=== PATIENT | male | born 1985 | race Caucasian/White ===

== ENCOUNTER 2021-10-21 16:40 | Emergency (ER) | payer MEDICAID, SELFPAY ==
[~2021-10-21] VITALS: Ht 177.8 cm; Wt 100.0 kg
[2021-10-21 16:41] VITALS: BP 120/70
== END 2021-10-21 18:08 | disposition home or self-care (01) ==
LOC: M ED 16:40
DX: S62.655A Nondisplaced fracture of middle phalanx of left ring finger, initial encounter for closed fracture (principal); W22.8XXA Striking against or struck by other objects, initial encounter; Y92.9 Unspecified place or not applicable; Y93.9 Activity, unspecified; Y99.0 Civilian activity done for income or pay

== ENCOUNTER 2022-04-02 17:33 | Emergency (ER) | payer SELFPAY ==
[~2022-04-02] VITALS: Ht 175.3 cm; Wt 97.5 kg
[2022-04-02 17:35] VITALS: BP 112/67
== END 2022-04-02 20:00 | disposition home or self-care (01) ==
LOC: M ED 17:33
DX: S56.911A Strain of unspecified muscles, fascia and tendons at forearm level, right arm, initial encounter (principal); Y92.9 Unspecified place or not applicable; Y93.9 Activity, unspecified

== ENCOUNTER 2023-10-31 18:59 | Emergency (ER) | payer SELFPAY ==
[~2023-10-31] VITALS: Ht 177.8 cm; Wt 102.9 kg
[2023-10-31] MEDS ORDERED: IBUP-1022 PO (19:59)
[2023-10-31] MEDS ORDERED: AMOX875T2 PO (19:59)
[2023-10-31] MEDS: IBUPROFEN 600MG TAB PO ONE (20:10)
[2023-10-31] MEDS: AUGMENTIN 875 MG TAB PO ONE (20:10)
[2023-10-31 20:20] VITALS: BP 143/94; TEMP 97.3; O2SAT 97
[2023-11-01] MEDS ORDERED: MEDR4PAK PO (08:06)
== END 2023-10-31 20:21 | disposition home or self-care (01) ==
LOC: M ED 18:59
DX: K04.7 Periapical abscess without sinus (principal); Z79.2 Long term (current) use of antibiotics; Z79.899 Other long term (current) drug therapy

== ENCOUNTER 2023-11-01 05:37 | Emergency (ER) | payer SELFPAY ==
[~2023-11-01 05:37] MED LIST: AMOX875T2 PO; IBUP-1022 PO
[2023-11-01 06:15] LABS: BASO % 0.4 % (0.0-1.0); EOS # 0.1 10^3/uL (0.0-0.5); EOS % 1.1 % (0.0-3.0); HEMATOCRIT 45.9 % (42.0-52.0); HEMOGLOBIN 15.8 g/dl (13.5-17.5); LYMPH # 1.7 10^3/uL (1.5-5.0); LYMPH % 20.4 % (24.0-44.0); MEAN CORPUSCULAR HEMOGLOBIN 31.3 pg (27.0-33.0); MEAN CORPUSCULAR HGB CONC 34.4 g/dl (32.0-36.5); MEAN CORPUSCULAR VOLUME 91.1 fl (80.0-96.0); MONO % 11.3 % (2.0-8.0); NEUTROPHILS # 5.6 10^3/uL (1.5-8.5); NEUTROPHILS % 66.6 % (36.0-66.0); PLATELET COUNT, AUTOMATED 239 10^3/uL (150-450); RED BLOOD COUNT 5.04 10^6/uL (4.30-6.10); WHITE BLOOD COUNT 8.5 10^3/uL (4.0-10.0)
[2023-11-01] MEDS: AMPICILLIN SOD/SULBACTAM SOD 3 GM in D5W MINI-BAG PLUS 100 ML IV ONE (06:27)
[2023-11-01] MEDS: dexAMETHasone 20MG/5ML VIAL IV ONE (06:27)
[2023-11-01 06:44] LABS: BLOOD UREA NITROGEN 13 MG/DL (9-23); CALCIUM LEVEL 9.1 MG/DL (8.5-10.1); CARBON DIOXIDE LEVEL 28 MMOL/L (20-31); CHLORIDE LEVEL 108 MMOL/L (98-107); CREATININE FOR GFR 0.83 MG/DL (0.70-1.30); GLOMERULAR FILTRATION RATE > 60.0 (>60); GLUCOSE, FASTING 116 MG/DL (60-100); POTASSIUM SERUM 4.1 MMOL/L (3.5-5.1); SODIUM LEVEL 141 MMOL/L (136-145)
[2023-11-01] MEDS ORDERED: ISOVUE-370 76% 100ML VIAL As Ordered ONE (06:49)
[2023-11-01 06:51] LABS: PROCALCITONIN <0.04 ng/ml
[2023-11-01] MEDS ORDERED: MEDR4PAK PO (08:06)
[2023-11-01 08:13] VITALS: BP 137/88; TEMP 97.3; O2SAT 97
== END 2023-11-01 08:46 | disposition home or self-care (01) ==
LOC: M ED 05:37
DX: K04.7 Periapical abscess without sinus (principal); K02.9 Dental caries, unspecified; F12.10 Cannabis abuse, uncomplicated; F17.200 Nicotine dependence, unspecified, uncomplicated; Z79.2 Long term (current) use of antibiotics; Z79.1 Long term (current) use of non-steroidal anti-inflammatories (NSAID); Z79.899 Other long term (current) drug therapy
CPT/HCPCS: 70487; 80048; 83605; 84145; 85025; 86140; 96365; 96375; 99284; J0295; J1100; Q9967

== ENCOUNTER 2024-05-18 23:17 | Emergency (ER) | payer SELFPAY ==
[~2024-05-18] VITALS: Ht 177.8 cm; Wt 104.3 kg
[2024-05-18 23:17] VITALS: BP 140/73; TEMP 100; O2SAT 95
[~2024-05-18 23:17] MED LIST changes: +MEDR4PAK PO
== END 2024-05-19 01:02 | disposition left against medical advice (07) ==
LOC: M ED 23:17
DX: Z53.21 Procedure and treatment not carried out due to patient leaving prior to being seen by health care provider (principal)